=== PATIENT | female | born 1990 | race Caucasian/White ===

== ENCOUNTER → 2016-10-18 | Day surgery (SDC) | payer OTHER ==
--- NOTE | 2016-10-17 09:03 | MH ---
cc: LEAH CEDILLO DATE OF ADMISSION: 10/18/2016 HISTORY OF PRESENT ILLNESS A 26-year-old with chronic otitis, for right-sided myringotomy and tube placement. PAST MEDICAL HISTORY Unremarkable. PAST SURGICAL HISTORY Unremarkable. REVIEW OF SYSTEMS/FAMILY HISTORY AND SOCIAL HISTORY Unremarkable. PHYSICAL EXAMINATION GENERAL: Well-appearing patient, no acute distress noted. HEENT: Exam reveals severely retracted right ear drum with fluid behind drum. Left ear is clear. LUNGS: Clear. HEART: Regular rate and rhythm. ABDOMEN: Soft and nontender. EXTREMITIES: Without cyanosis, clubbing or edema. NEUROLOGIC: Alert, oriented, nonfocal neurologic exam. IMPRESSION Patient with chronic otitis, for tube in right ear. Instructed method of surgery and possible complication including anesthetic complication, cardiac difficulty, pulmonary difficulty, stroke, or even . Surgical complications of bleeding, infection, risk of early or late extrusion of tube, tympanic membrane perforation, conductive or sensorineural hearing loss. The patient appeared to agree, accept and understand above-mentioned risks and benefits. In addition, no guarantees or warranties regarding outcome were given. We will therefore proceed with surgery. MD MITRA Gillis/MICHELLE /8:02 AM /8:50 AM
[~2016-10-18] VITALS: Ht 160 cm; Wt 56.3 kg
[~2016-10-18] MED LIST: DEXAMETHASONE SOD PHOS 4 MG/ML VIAL ONE; FAMOTIDINE 20 MG/2 ML VIAL ONE; JUNETAB PO; MIDAZOLAM HCL 2 MG/2 ML VIAL ONE; OFLOXACIN 0.3% OPTH SOLN 5 ML BTL RIGHT EAR ONE; ONDANSETRON HCL 4 MG/2 ML VIAL IV PUSH ONE; PROPOFOL 200 MG/20 ML AMP IV ONE
[2016-10-18 06:27] VITALS: BP 146/86; PULSE 71; RESP 16; TEMP 98.2; O2SAT 100
[2016-10-18 09:53] VITALS: BP 124/70; PULSE 68; RESP 16; TEMP 98.1; O2SAT 100
--- NOTE | 2016-10-20 18:35 | MP ---
cc: LEAH CEDILLO DATE OF SURGERY: 10/18/2016. PREOPERATIVE DIAGNOSIS: Chronic otitis media right. PROCEDURE Right myringotomy and T-tube placement. OPERATING SURGEON: Leah Cedillo MD ANESTHESIA: General anesthesia. ESTIMATED BLOOD LOSS Minimal. COMPLICATIONS: No complications. DESCRIPTION OF THE PROCEDURE IN DETAIL: Prepped, draped usual fashion. Under microscopic visualization anterior-inferior radial myringotomy incision made. Fluid suctioned from middle ear cavity. Tympanostomy tube placed into position under microscopic visualization. T-tube along with Oflox drops. The patient tolerated procedure well. Leah Cedillo MD [facility]/YARELIS /9:13 AM /6:24 PM
== END | disposition home or self-care (01) ==
LOC: HSDC 05:23
PROVIDERS: ATTEND Specialist
DX: H66.91 Otitis media, unspecified, right ear (principal)
CPT/HCPCS: 00126; 69436; J1100; J2250; J2405; J3010